=== PATIENT | male | born 1940 | race Caucasian/White ===

== ENCOUNTER 2018-08-06 04:15 | Emergency (ER) | payer BC, OTHER ==
--- NOTE | 2018-08-06 04:35 | PDOC ---
History of Present Illness - General Stated Complaint: DIZZY Time Seen by Provider: 08/06/18 04:34 - History of Present Illness Initial Comments: 78yo M with no significant past medical history presenting with lightheadedness. Patient was sleeping at home when he moved around in bed and suddenly felt lightheaded. Home blood pressure check was in the systolic 170s which is high as patient's blood pressure is usually in the 130s. Denies nausea or vomiting. No focal neurologic deficits, weakness on one side of the body, numbness, or heart palpitations. Reports no cardiac history and never had anything like this happen before. Patient says that he has returned to his baseline after receiving meclizine 25 in the ED. No loss of consciousness, no seizure-like activity, no chest pain, no shortness of breath. Past History - Past Medical History Home Medications: Ambulatory Orders Meclizine HCl 25 mg PO PRN PRN #15 tab.[email or web address] 08/06/18 Review of Systems - Review of Systems Comments:: Constitutional: no fever, no chills Cardiovascular: no chest pain, no palpitations Respiratory: no cough, no shortness of breath Gastrointestinal: no abdominal pain, no nausea, no vomiting Genitourinary: no dysuria, no frequency Musculoskeletal: no myalgia, no arthralgia Skin: no rash, no itching Neurologic: +headache, +lightheadedness *Physical Exam - Physical Exam Comments: General: Awake, alert, and fully oriented, in no acute distress Head: no signs of trauma Eyes: EOMI, sclera anicteric ENT: Moist mucus membranes, Neck: Normal ROM, supple Lungs: Lungs clear, Normal breath sounds Cardio: Regular rhythm, S1 and S2 present Abdomen: Soft, nontender. No guarding, no rebound, no masses Extremities: Normal range of motion, Distal pulses present SKIN: Warm, Dry, normal turgor Neurologic: Cranial nerves II through XII grossly intact. Normal speech, strength, sensation, gait, and coordination. Medical Decision Making - Medical Decision Making 78yo M with no significant past medical history presenting with lightheadedness. -Normal neurologic exam -Hypertensive with systolic 160s, no indication of end-organ damage -Meclizine: Patient reported relief of symptoms -Instructed to follow up with PCP on Wednesday regarding hypertension -Referral to neurology -Discharged with return precautions. Patient amenable to plan. 08/06/18 07:07 *DC/Admit/Observation/Transfer Diagnosis at time of Disposition: Lightheadedness - Discharge Dispostion Disposition: HOME Condition at time of disposition: Fair - Prescriptions Prescriptions: Meclizine HCl 25 mg PO PRN PRN #15 tab.[email or web address] PRN Reason: for dizziness - Referrals Referrals: Heath Aguirre MD [Primary Care Provider] - Corby García MD [Staff Physician] - - Patient Instructions Printed Discharge Instructions: DI for Dizziness-Nonvertigo Additional Instructions: You came into the ED for dizziness. Follow-up with your Primary Care doctor on Wednesday. We have referred you to a neurologist, Dr. García. Call and make an appointment. Prescription sent to your pharmacy. Take as needed for dizziness. Call for medical help or go to the ED right away if you have: Weakness or numbness of face, arm, or leg Confusion Trouble speaking or understanding Loss of balance, coordination problems Vision problems Severe headache Rapid, irregular heartbeat; chest pain If you think you have an emergency, call for medical help right away. - Post Discharge Activity
--- NOTE | 2018-08-06 04:41 | PDOC ---
Attending Attestation - Resident Resident Name: Florence Thomas - ED Attending Attestation I have performed the following: I have examined & evaluated the patient, The case was reviewed & discussed with the resident, I agree w/resident's findings & plan - HPI HPI: 08/06/18 04:59 Pt comes with dizziness. - Physicial Exam PE: 08/06/18 05:58 Agree with resident exam. - Medical Decision Making 08/06/18 05:00 Pt has vertigo symptoms. BP was elevated to 170s rather than the 130s where he usually is. 08/06/18 05:[address] scan 08/06/18 06:28 Pt is feeling better with meclizine and he will follow with Neuro as an outpatient
[2018-08-06 04:53] VITALS: BMI 28.1
[2018-08-06] MEDS ORDERED: MECLIZINE HCL 25 MG TABLET (FP) PO ONE (05:01)
[2018-08-06 06:37] VITALS: BP 153/81; PULSE 65; TEMP 98.3
== END 2018-08-06 06:37 | disposition home or self-care (01) ==
LOC: JER 04:15
DX: I10 Essential (primary) hypertension (principal); R42 Dizziness and giddiness
CPT/HCPCS: 99281-25

== ENCOUNTER 2021-10-20 10:55 | Emergency (ER) | payer BC, OTHER ==
[2021-10-20 11:08] VITALS: TEMP 98.4; BMI 28.1
[2021-10-20] MEDS ORDERED: CASIRIVIMAB/IMDEVIMAB 10 ML in SODIUM CHLORIDE 100 ML IVPB ONE (12:15)
[2021-10-20 14:31] VITALS: BP 134/74; PULSE 73
== END 2021-10-20 14:27 | disposition home or self-care (01) ==
LOC: JCOVINFU 10:55
PROC: 3E033GC Introduction of Other Therapeutic Substance into Peripheral Vein, Percutaneous Approach (ICD-10-PCS; principal; 2021-10-20)
DX: U07.1 COVID-19 (principal)
CPT/HCPCS: 99284-25; Q0240

== ENCOUNTER 2022-12-08 01:01 | Emergency (ER) | payer BC, OTHER ==
[2022-12-08 01:05] VITALS: RESP 18; BMI 28.1
[2022-12-08 02:55] VITALS: BP 141/78; PULSE 79; TEMP 97.7
[2022-12-08 05:18] LABS: EPI CELLS 7 /uL (0-25.1); HYALINE CASTS 0 /uL (0-3.1); URINE APPEARANCE CLEAR; URINE BACTERIA 982 /uL (0-1359); URINE BILIRUBIN NEGATIVE (NEGATIVE); URINE COLOR YELLOW; URINE GLUCOSE (UA) NEGATIVE (NEGATIVE); URINE KETONE NEGATIVE (NEGATIVE); URINE LEUK ESTERASE TRACE (NEGATIVE); URINE NITRITE NEGATIVE (NEGATIVE); URINE PROTEIN NEGATIVE (NEGATIVE); URINE RBC 7 /uL (0-23.9); URINE UROBILINOGEN 0.2 mg/dL (0.2-1.0); URINE WBC 28 /uL (0-25.8)
== END 2022-12-08 02:55 | disposition home or self-care (01) ==
LOC: JER 01:01
DX: R33.9 Retention of urine, unspecified (principal)
CPT/HCPCS: 81003; 87086; 87186; 99283-25

== ENCOUNTER 2022-12-22 03:57 | Day surgery (SDC) | payer BC, OTHER ==
[2022-12-17 11:47] VITALS: BMI 27.3
[2022-12-22] MEDS ORDERED: DEXAMETHASONE SOD PHOSPHATE 4 MG/1 ML VIAL ONE (07:21)
[2022-12-22] MEDS ORDERED: ETOMIDATE 20 MG/10 ML VIAL IVPUSH ONE (07:21)
[2022-12-22] MEDS ORDERED: LIDOCAINE HCL/PF 2% SDV 5ML VIAL ONE (07:21)
[2022-12-22] MEDS ORDERED: ONDANSETRON 4 MG/2 ML VIAL ONE (07:21)
[2022-12-22] MEDS ORDERED: PROPOFOL 40 ML ONE (07:21)
[2022-12-22] MEDS ORDERED: ePHEDrine SULFATE 50 MG/1 ML AMPULE ONE (07:40)
[2022-12-22] MEDS ORDERED: VANCOMYCIN 1,000 MG VIAL (RESTRICTED TO ID ONLY) IVPB ONE (07:48)
[2022-12-22] MEDS ORDERED: oxyCODONE HCL 5 MG TABLET PO PRN (08:38)
[2022-12-22] MEDS ORDERED: ONDANSETRON 4 MG/2 ML VIAL IVPUSH PRN (08:42)
[2022-12-22] MEDS ORDERED: LACTATED RINGERS SOLUTION 1,000 ML IV SCH (08:45)
[2022-12-22] MEDS ORDERED: DEXTROSE 5%-0.45% SALINE 1,000 ML IV SCH (08:45)
[2022-12-22 09:33] VITALS: RESP 18
[2022-12-22 12:47] VITALS: BP 167/82; PULSE 85; TEMP 98.8
== END 2022-12-22 12:45 | disposition home or self-care (01) ==
LOC: JASU-SURG 03:57
PROVIDERS: ATTEND Urology
PROC: 0VT08ZZ Resection of Prostate, Via Natural or Artificial Opening Endoscopic (ICD-10-PCS; principal; 2022-12-22 07:30)
DX: N40.1 Benign prostatic hyperplasia with lower urinary tract symptoms (principal); R33.8 Other retention of urine
CPT/HCPCS: 88305-TC; 94760